=== PATIENT | male | born 1965 | race Hispanic/Latino ===

== ENCOUNTER 2018-08-30 18:56 | Emergency (ER) | payer OTHER, SELFPAY ==
[2018-08-30] MEDS ORDERED: NA CHLORIDE 0.9% 1,000 ML ONE (19:51)
[2018-08-30] MEDS ORDERED: ONDANSETRON 4 MG/2 ML VIAL ONE (19:51)
[2018-08-30] MEDS ORDERED: MORPHINE 4 MG/ML SYR ONE (19:51)
[2018-08-30 19:52] LABS: Absolute Lymphocytes (CBC) 0.9 K/uL (0.7-4.9); Absolute Monocytes 0.6 K/uL (0.1-1.3); Absolute Neutrophil 7.9 K/uL (1.8-8.0); Basophils % 0.4 % (0-1.3); Hematocrit 27.8 % (39.6-49.0); Lymphocytes % 9.3 % (15.3-44.8); MPV 6.5 fL (7.6-11.3); Monocytes % 5.8 % (3.3-12.3); RBC Red Blood Cell Count 3.84 M/uL (4.33-5.43)
[2018-08-30 20:31] LABS: ALT/SGPT 13 U/L (12-78); AST/SGOT 90 U/L (15-37); Albumin 2.4 g/dL (3.4-5.0); Alkaline Phosphatase 954 U/L (45-117); BUN Blood Urea Nitrogen 18 mg/dL (7-18); Bicarbonate 27 mmol/L (21-32); Bilirubin Direct 0.1 mg/dL (0-0.2); Bilirubin Total 0.3 mg/dL (0.2-1.0); Glucose Level 157 mg/dL (74-106); Lipase 105 U/L (73-393); Potassium 4.3 mmol/L (3.5-5.1); Protein, Total 6.6 g/dL (6.4-8.2); Sodium Level 137 mmol/L (136-145)
[2018-08-30 20:36] LABS: Anisocytosis SLIGHT; Blood Morphology Comment NOTED (NOT SEEN); Platelet Estimate ADEQ; Poikilocytosis SLIGHT; Polychromasia SLIGHT; Urine White Blood Cell Casts DIFF
[2018-08-30] MEDS ORDERED: KETOROLAC 30 MG/ML INJ ONE (21:46)
--- NOTE | 2018-08-30 22:09 | ER ---
Nurse's Notes [facility] Name: Anamaria Can Jr Age: 53 yrs Sex: Male : 1965 Arrival Date: 08/30/2018 Time: 18:59 Bed 4 Private MD: Berhane Hung R Diagnosis: Low back pain Presentation: 08/30 19:23 Presenting complaint: Patient states: he has had severe back pain for the last 2 to 3 bb months pt recently diagnosed with cancer had recent biopsy but no results yet. Transition of care: patient was not received from another setting of care. Onset of symptoms is unknown. Risk Assessment: Do you want to hurt yourself or someone else? Patient reports no desire to harm self or others. Initial Sepsis Screen: Does the patient meet any 2 criteria? No. Patient's initial sepsis screen is negative. Does the patient have a suspected source of infection? No. Patient's initial sepsis screen is negative. Care prior to arrival: None. 19:23 Method Of Arrival: Ambulatory bb 19:23 Acuity: TALA 3 bb Historical: - Allergies: 19:29 No Known Allergies; bb - Home Meds: 19:29 hydrocodone-acetaminophen 10-325 mg oral tab 1 tab [Active]; famotidine 20 mg Oral tab bb [Active]; methocarbamol 500 mg Oral tab [Active]; multivitamin oral oral [Active]; Zofran (as hydrochloride) 8 mg Oral tab [Active]; Miralax Oral [Active]; atorvastatin 40 mg oral tab [Active]; clopidogrel 75 mg oral tab 1 tab once daily [Active]; insulin [Active]; - PMHx: 19:29 CAD; Diabetes - IDDM; ascites; bowel obstruction; Hypertension; GERD; Hyperlipidemia; bb - PSHx: 19:29 CABG; Gastric Bypass; bb - Immunization history:: Adult Immunizations up to date, Flu vaccine is up to date. - Social history:: Smoking status: Patient/guardian denies using tobacco, Patient/guardian denies using alcohol, street drugs. - Ebola Screening: : No symptoms or risks identified at this time. Screenin:45 Abuse screen: Denies threats or abuse. Nutritional screening: No deficits noted. tl2 Tuberculosis screening: No symptoms or risk factors identified. Fall Risk None identified. Assessment: 19:45 General: Appears in no apparent distress. uncomfortable, Behavior is cooperative, tl2 appropriate for age, anxious. General: pt recently released from hospital after being diagnosed with stomach cancer. Pt reports chronic back pain. Pain: Complains of pain in back Pain currently is 8 out of 10 on a pain scale. Is chronic. Neuro: Level of Consciousness is awake, alert, obeys commands, Oriented to person, place, time, situation. Cardiovascular: Denies chest pain. Respiratory: Airway is patent Respiratory effort is even, unlabored, Respiratory pattern is regular, symmetrical. GI: No signs and/or symptoms were reported involving the gastrointestinal system. : No signs and/or symptoms were reported regarding the genitourinary system. Derm: Skin is pink, warm \T\ dry. 20:18 Reassessment: Patient appears in no apparent distress at this time. Patient and/or tl2 family updated on plan of care and expected duration. Pain level reassessed. Patient is alert, oriented x 3, equal unlabored respirations, skin warm/dry/pink. Patient states feeling better. 21:25 Reassessment: Patient appears in no apparent distress at this time. Patient and/or tl2 family updated on plan of care and expected duration. Pain level reassessed. Patient is alert, oriented x 3, equal unlabored respirations, skin warm/dry/pink. 21:59 Reassessment: Patient appears in no apparent distress at this time. Patient and/or tl2 family updated on plan of care and expected duration. Pain level reassessed. Patient is alert, oriented x 3, equal unlabored respirations, skin warm/dry/pink. pt states pain has improved but he still feels an aching in his back. 22:39 Reassessment: Patient appears in no apparent distress at this time. Patient and/or tl2 family updated on plan of care and expected duration. Pain level reassessed. Patient is alert, oriented x 3, equal unlabored respirations, skin warm/dry/pink. pt verbalized understanding of discharge instructions, need for follow up and prescription usage Patient denies pain at this time. Patient states feeling better. Vital Signs: 19:29 BP 145 / 93; Pulse 100; Resp 18 S; Temp 98.7(O); Pulse Ox 96% on R/A; Weight 68.04 kg bb (R); Height 5 ft. 7 in. (170.18 cm) (R); Pain 10/10; 20:18 BP 119 / 86; Pulse 87; Resp 18; Pulse Ox 94% on R/A; tl2 21:24 BP 133 / 86; Pulse 65; Resp 18; Pulse Ox 95% on R/A; tl2 21:59 BP 136 / 70; Pulse 65; Resp 18; Pulse Ox 95% on R/A; tl2 19:29 Body Mass Index 23.49 (68.04 kg, 170.18 cm) bb ED Course: 18:59 Patient arrived in ED. dl4 18:59 Berhane Hung MD is Private Physician. dl4 19:20 Ramirez Bess MD is Attending Physician. tw4 19:24 Julita Fields RN is Primary Nurse. tl2 19:24 Triage completed. bb 19:29 Arm band placed on Patient placed in an exam room, on a stretcher, on pulse oximetry. bb Family accompanied patient. 19:35 Inserted saline lock: 20 gauge in right antecubital area, using aseptic technique. tl2 Blood collected. 19:45 Patient has correct armband on for positive identification. Placed in gown. Bed in low tl2 position. Call light in reach. Side rails up X 1. Adult w/ patient. 22:07 Berhane Hung MD is Referral Physician. tw4 22:39 No provider procedures requiring assistance completed. IV discontinued, intact, tl2 bleeding controlled, No redness/swelling at site. Pressure dressing applied. Administered Medications: 19:44 Drug: morphine 4 mg Route: IVP; Site: right antecubital; tl2 20:30 Follow up: Response: No adverse reaction; Pain is decreased tl2 19:44 Drug: Zofran 4 mg Route: IVP; Site: right antecubital; tl2 20:30 Follow up: Response: No adverse reaction; Nausea is decreased tl2 19:44 Drug: NS 0.9% 1000 ml Route: IV; Rate: 1 bolus; Site: right antecubital; tl2 20:57 Follow up: IV Status: Completed infusion; IV Intake: 1000ml tl2 22:00 Drug: TORadol 30 mg Route: IVP; Site: right antecubital; tl2 22:42 Follow up: Response: No adverse reaction; Pain is decreased tl2 Intake: 20:57 IV: 1000ml; Total: 1000ml. tl2 Outcome: 22:07 Discharge ordered by . tw4 22:39 Discharged to home via wheelchair, with family. tl2 22:39 Condition: stable 22:39 Discharge instructions given to patient, family, Instructed on discharge instructions, follow up and referral plans. medication usage, Demonstrated understanding of instructions, follow-up care, medications, Prescriptions given X 2. 22:42 Patient left the ED. tl2 Signatures: Mehreen Jordan RN RN Julita He RN RN tl2 Ramirez Bess MD MD tw4 Marcelo Valderrama dl4
--- NOTE | 2018-08-30 22:09 | EDPHYS ---
Physician Documentation [facility] Name: Anamaria Can Jr Age: 53 yrs Sex: Male : 1965 Arrival Date: 08/30/2018 Time: 18:59 Bed 4 Private MD: Berhane Hung R ED Physician Ramirez Bess HPI: 08/30 22:08 This 53 yrs old Male presents to ER via Ambulatory with complaints of Back tw4 Pain. 22:08 The patient presents with pain that is chronic, with no known mechanism of injury. The tw4 symptoms are located in the low back. Onset: The symptoms/episode began/occurred 2 week(s) ago, and became worse 1 day(s) ago. The pain does not radiate. Associated signs and symptoms: The patient has no apparent associated signs or symptoms. The problem was sustained without known cause. Modifying factors: The patient symptoms are alleviated by remaining still, the patient symptoms are aggravated by movement. The patient has not experienced similar symptoms in the past. Historical: - Allergies: 19:29 No Known Allergies; bb - Home Meds: 19:29 hydrocodone-acetaminophen 10-325 mg oral tab 1 tab [Active]; famotidine 20 mg Oral tab bb [Active]; methocarbamol 500 mg Oral tab [Active]; multivitamin oral oral [Active]; Zofran (as hydrochloride) 8 mg Oral tab [Active]; Miralax Oral [Active]; atorvastatin 40 mg oral tab [Active]; clopidogrel 75 mg oral tab 1 tab once daily [Active]; insulin [Active]; - PMHx: 19:29 CAD; Diabetes - IDDM; ascites; bowel obstruction; Hypertension; GERD; Hyperlipidemia; bb - PSHx: 19:29 CABG; Gastric Bypass; bb - Immunization history:: Adult Immunizations up to date, Flu vaccine is up to date. - Social history:: Smoking status: Patient/guardian denies using tobacco, Patient/guardian denies using alcohol, street drugs. - Ebola Screening: : No symptoms or risks identified at this time. ROS: 22:08 Constitutional: Negative for fever, chills, and weight loss, Eyes: Negative for injury, tw4 pain, redness, and discharge, Cardiovascular: Negative for chest pain, palpitations, and edema, Respiratory: Negative for shortness of breath, cough, wheezing, and pleuritic chest pain, Abdomen/GI: Negative for abdominal pain, nausea, vomiting, diarrhea, and constipation, MS/Extremity: Negative for injury and deformity, Skin: Negative for injury, rash, and discoloration, Neuro: Negative for headache, weakness, numbness, tingling, and seizure. 22:08 Back: Positive for decreased range of motion, pain at rest, pain with movement, Negative for injury or acute deformity, radiated pain, acute changes. Exam: 22:08 Constitutional: This is a well developed, well nourished patient who is awake, alert, tw4 and in no acute distress. Head/Face: Normocephalic, atraumatic. Chest/axilla: Normal chest wall appearance and motion. Nontender with no deformity. No lesions are appreciated. Cardiovascular: Regular rate and rhythm with a normal S1 and S2. No gallops, murmurs, or rubs. Normal PMI, no JVD. No pulse deficits. Respiratory: Lungs have equal breath sounds bilaterally, clear to auscultation and percussion. No rales, rhonchi or wheezes noted. No increased work of breathing, no retractions or nasal flaring. Abdomen/GI: Soft, non-tender, with normal bowel sounds. No distension or tympany. No guarding or rebound. No evidence of tenderness throughout. Skin: Warm, dry with normal turgor. Normal color with no rashes, no lesions, and no evidence of cellulitis. MS/ Extremity: Pulses equal, no cyanosis. Neurovascular intact. Full, normal range of motion. Neuro: Awake and alert, GCS 15, oriented to person, place, time, and situation. Cranial nerves II-XII grossly intact. Motor strength 5/5 in all extremities. Sensory grossly intact. Cerebellar exam normal. Normal gait. Vital Signs: 19:29 BP 145 / 93; Pulse 100; Resp 18 S; Temp 98.7(O); Pulse Ox 96% on R/A; Weight 68.04 kg bb (R); Height 5 ft. 7 in. (170.18 cm) (R); Pain 10/10; 20:18 BP 119 / 86; Pulse 87; Resp 18; Pulse Ox 94% on R/A; tl2 21:24 BP 133 / 86; Pulse 65; Resp 18; Pulse Ox 95% on R/A; tl2 21:59 BP 136 / 70; Pulse 65; Resp 18; Pulse Ox 95% on R/A; tl2 19:29 Body Mass Index 23.49 (68.04 kg, 170.18 cm) bb MDM: 19:21 Patient medically screened. tw4 22:08 Differential diagnosis: Abdominal Aortic Aneurysm Basilar Pneumonia chronic back pain, tw4 Hydronephrosis Joint Injury Osteoporosis. Data reviewed: vital signs, nurses notes. Counseling: I had a detailed discussion with the patient and/or guardian regarding: the historical points, exam findings, and any diagnostic results supporting the discharge/admit diagnosis. Medication response: morphine relieved the patient's pain. Symptoms have resolved. Response to treatment: the patient's symptoms have resolved after treatment, and as a result, I will discharge patient. Special discussion: I discussed with the patient/guardian in detail that at this point there is no indication for admission to the hospital. It is understood, however, that if the symptoms persist or worsen the patient needs to return immediately for re-evaluation. 08/30 19:22 Order name: Urine Microscopic Only tw08/30 19:32 Order name: Basic Metabolic Panel; Complete Time: 20:55 08/30 20:55 Interpretation: Normal except: GLUC 157. tw4 08/30 19:32 Order name: CBC with Diff; Complete Time: 20:55 08/30 20:55 Interpretation: Normal except: RBC 3.84; HGB 9.0; HCT 27.8; MCV 72.5; MCH 23.5; RDW tw4 19.7; MPV 6.5; SAUL% 81.5; LYM% 9.3. 08/30 19:32 Order name: Creatinine for Radiology; Complete Time: 22:07 08/30 19:32 Order name: Hepatic Function; Complete Time: 20:56 tw08/30 20:56 Interpretation: Normal except: AST 90; ALK 954; ALB 2.4; GLOB 4.2; A/G 0.6. tw08/30 19:32 Order name: Lipase; Complete Time: 20:56 4 08/30 19:22 Order name: Urine Dipstick-Ancillary (obtain specimen); Complete Time: 22:00 tw08/30 20:02 Order name: CBC Smear Scan EDMS 08/30 20:38 Order name: Manual Differential; Complete Time: 20:56 EDMS 08/30 20:56 Interpretation: Normal except: BANDS [F] 4; LYM 14. tw4 08/30 22:11 Order name: Urine Dipstick--Ancillary (enter results) [facility] 08/30 19:32 Order name: IV Saline Lock; Complete Time: 19:43 tw4 08/30 19:32 Order name: Labs collected and sent; Complete Time: 19:43 tw4 Administered Medications: 19:44 Drug: morphine 4 mg Route: IVP; Site: right antecubital; tl2 20:30 Follow up: Response: No adverse reaction; Pain is decreased tl2 19:44 Drug: Zofran 4 mg Route: IVP; Site: right antecubital; tl2 20:30 Follow up: Response: No adverse reaction; Nausea is decreased tl2 19:44 Drug: NS 0.9% 1000 ml Route: IV; Rate: 1 bolus; Site: right antecubital; tl2 20:57 Follow up: IV Status: Completed infusion; IV Intake: 1000ml tl2 22:00 Drug: TORadol 30 mg Route: IVP; Site: right antecubital; tl2 22:42 Follow up: Response: No adverse reaction; Pain is decreased tl2 Disposition: 08/30/18 22:07 Discharged to Home. Impression: Low back pain. - Condition is Stable. - Discharge Instructions: Back Pain, Adult, Chronic Back Pain. - Prescriptions for Cyclobenzaprine 10 mg Oral Tablet - take 1 tablet by ORAL route every 8 hours As needed; 30 tablet. Tramadol 50 mg Oral Tablet - take 1 tablet by ORAL route every 8 hours as needed; 12 tablet. - Medication Reconciliation Form, Thank You Letter, Antibiotic Education, Prescription Opioid Use form. - Follow up: Berhaen Hugn MD; When: Upon discharge from the Emergency Department; Reason: If symptoms return, Recheck today's complaints, Continuance of care. Follow up: Private Physician; When: Upon discharge from the Emergency Department; Reason: If symptoms return, Recheck today's complaints, Continuance of care. - Problem is new. - Symptoms have improved. Signatures: Dispatcher [employer] [facility] Mehreen Jordan RN RN bb Julita Fields RN RN tl2 Ramirez Bess MD MD tw4 Corrections: (The following items were deleted from the chart) 22:42 22:07 08/30/2018 22:07 Discharged to Home. Impression: Low back pain. Condition is tl2 Stable. Forms are Medication Reconciliation Form, Thank You Letter, Antibiotic Education, Prescription Opioid Use. Follow up: Berhane Hung; When: Upon discharge from the Emergency Department; Reason: If symptoms return, Recheck today's complaints, Continuance of care. Follow up: Private Physician; When: Upon discharge from the Emergency Department; Reason: If symptoms return, Recheck today's complaints, Continuance of care. Problem is new. Symptoms have improved. tw4
[2018-08-30 22:16] LABS: Urine Blood NEGATIVE (NEG); Urine Glucose TRACE (NEG); Urine Protein NEGATIVE (NEG); Urine pH 5.5 (5.0-7.0)
[2018-08-30 22:25] LABS: Urine Bacteria NONE SEEN /HPF (NONE SEEN); Urine Culture Reflex Order NOT NEEDED; Urine RBC NONE SEEN /HPF (NONE SEEN)
== END 2018-08-30 22:42 | disposition home or self-care (01) ==
LOC: ER 18:56
DX: M54.5 Low back pain (principal); I10 Essential (primary) hypertension; E11.9 Type 2 diabetes mellitus without complications; E78.5 Hyperlipidemia, unspecified; Z79.4 Long term (current) use of insulin; Z95.1 Presence of aortocoronary bypass graft
CPT/HCPCS: 36415; 80048; 80076; 81003; 81015; 83690; 85025; 96361; 96374; 96375; 99284; J2405; J7030

== ENCOUNTER 2018-09-05 12:43 | Emergency (ER) | payer SELFPAY ==
[2018-09-05] MEDS ORDERED: FENTANYL CITR 100 MCG/2 ML ONE ×2 (13:43→14:34)
[2018-09-05 13:52] LABS: Absolute Lymphocytes (CBC) 0.6 K/uL (0.7-4.9); Absolute Monocytes 0.4 K/uL (0.1-1.3); Absolute Neutrophil 5.9 K/uL (1.8-8.0); Basophils % 0.5 % (0-1.3); Eosinophils % 4.1 % (0-4.4); Hematocrit 25.7 % (39.6-49.0); Lymphocytes % 8.3 % (15.3-44.8); RBC Red Blood Cell Count 3.59 M/uL (4.33-5.43)
[2018-09-05 14:26] LABS: Albumin 2.5 g/dL (3.4-5.0); Bilirubin Direct 0.2 mg/dL (0-0.2); Bilirubin Total 0.4 mg/dL (0.2-1.0); Potassium 3.9 mmol/L (3.5-5.1); Protein, Total 6.6 g/dL (6.4-8.2)
[2018-09-05 14:50] LABS: Anisocytosis 1+; Blood Morphology Comment NOTED (NOT SEEN); Platelet Estimate ADEQ; Platelets, Giant NOTED
--- NOTE | 2018-09-05 14:51 | RAD REPORT ---
EXAM DESCRIPTION: CT - Chest Abdomen Pelvis W Cont - 09/05/2018 1:58 pm CLINICAL HISTORY: Chest and abdominal pain status post fall COMPARISON: None TECHNIQUE: Computed axial tomography of the chest, abdomen and pelvis was obtained. 100 cc Isovue-30 0 was administered intravenously. Oral contrast was not requested. This limits evaluation of bowel. All CT scans are performed using dose optimization technique as appropriate and may include automated exposure control or mA/KV adjustment according to patient size. FINDINGS: A pleural effusion is not present. A pulmonary contusion is not seen. A 4 millimeter nodule is present within right anterior lung base. A few areas of subsegmental axis are present within the lung bases bilaterally. A mediastinal hematoma is not present. The liver, spleen, pancreas, adrenals kidneys and bladder do not demonstrate a traumatic injury. Moderate amount ascites present within abdomen and pelvis. The bones have a mottled appearance. Mild compression fractures involve the L3 and L4 vertebral keerthi s. Postsurgical changes involve the stomach. The wall of the distal stomach appears thickened IMPRESSION: No traumatic injury involving the chest Mild compression fractures involving the L3 and L4 vertebral bodies probably are pathologic. The bones have a mottled appearance likely indicating metastatic disease Moderate ascites The wall of the distal stomach appears thickened perhaps secondary to inflammation or mass
[2018-09-05 14:52] LABS: Hypochromasia 1+; Polychromasia 1+
--- NOTE | 2018-09-05 17:14 | EDPHYS ---
Physician Documentation [facility] Name: Anamaria Can Jr Age: 53 yrs Sex: Male : 1965 Arrival Date: 09/05/2018 Time: 12:44 Bed 24 Private MD: Berhane Hung R ED Physician Jeffy Walker HPI: 09/05 19:36 This 53 yrs old Male presents to ER via Wheelchair with complaints of Back gs Pain. 19:36 The patient presents with pain that is acute. The symptoms are located in the L1 and gs L2. Onset: The symptoms/episode began/occurred 3 day(s) ago. Associated signs and symptoms: Pertinent negatives: incontinence, numbness, tingling, urinary retention. Modifying factors: the patient symptoms are aggravated by any movement. Severity of symptoms: At their worst the symptoms were severe, in the emergency department the symptoms are unchanged. The patient has not experienced similar symptoms in the past. recent cancer diagnosis. Historical: - Allergies: 13:04 No Known Allergies; ss - PMHx: 13:04 bowel obstruction; CAD; Diabetes - IDDM; GERD; Hyperlipidemia; Hypertension; ascites; ss - PSHx: 13:04 CABG; Gastric Bypass; ss - Immunization history:: Adult Immunizations up to date. - Social history:: Smoking status: unknown. - Ebola Screening: : Patient negative for fever greater than or equal to 101.5 degrees Fahrenheit, and additional compatible Ebola Virus Disease symptoms Patient denies exposure to infectious person Patient denies travel to an Ebola-affected area in the 21 days before illness onset. ROS: 19:36 All other systems are negative. gs Exam: 19:36 Head/Face: Normocephalic, atraumatic. Eyes: Pupils equal round and reactive to light, gs extra-ocular motions intact. Lids and lashes normal. Conjunctiva and sclera are non-icteric and not injected. Cornea within normal limits. Periorbital areas with no swelling, redness, or edema. ENT: Nares patent. No nasal discharge, no septal abnormalities noted. Tympanic membranes are normal and external auditory canals are clear. Oropharynx with no redness, swelling, or masses, exudates, or evidence of obstruction, uvula midline. Mucous membranes moist. Neck: Trachea midline, no thyromegaly or masses palpated, and no cervical lymphadenopathy. Supple, full range of motion without nuchal rigidity, or vertebral point tenderness. No Meningismus. Chest/axilla: Normal chest wall appearance and motion. Nontender with no deformity. No lesions are appreciated. Cardiovascular: Regular rate and rhythm with a normal S1 and S2. No gallops, murmurs, or rubs. Normal PMI, no JVD. No pulse deficits. Respiratory: Lungs have equal breath sounds bilaterally, clear to auscultation and percussion. No rales, rhonchi or wheezes noted. No increased work of breathing, no retractions or nasal flaring. Abdomen/GI: Soft, non-tender, with normal bowel sounds. No distension or tympany. No guarding or rebound. No evidence of tenderness throughout. Skin: Warm, dry with normal turgor. Normal color with no rashes, no lesions, and no evidence of cellulitis. MS/ Extremity: Pulses equal, no cyanosis. Neurovascular intact. Full, normal range of motion. 19:36 Constitutional: The patient appears alert, awake, in obvious distress, severely distressed. 19:36 Back: vertebral tenderness, is appreciated at L1 and L2. 19:36 Neuro: Orientation: is normal, Motor: is normal, Sensation: no obvious gross deficits. Vital Signs: 12:58 BP 110 / 64; Pulse 99; Resp 22; Temp 96.8(O); Pulse Ox 100% on R/A; Weight 68.04 kg; ss Height 5 ft. 7 in. (170.18 cm); Pain 10/10; 14:33 BP 132 / 86; Pulse 88; Resp 18; Pulse Ox 96% on R/A; aj1 15:00 BP 109 / 86; Pulse 88; Resp 17 S; Pulse Ox 99% on R/A; rv 15:30 BP 133 / 84; Pulse 92; Resp 19 S; Pulse Ox 99% on R/A; rv 16:30 BP 135 / 90; Pulse 91; Resp 22 S; Pulse Ox 100% on R/A; rv 17:00 BP 127 / 84; Pulse 90; Resp 18; Pulse Ox 100% on R/A; rv 17:30 BP 133 / 94; Pulse 84; Resp 18; Pulse Ox 99% on R/A; rv 18:00 BP 126 / 78; Pulse 96; Resp 21; Pulse Ox 100% on R/A; rv 12:58 Body Mass Index 23.49 (68.04 kg, 170.18 cm) MDM: 13:19 Patient medically screened. 19:36 Differential diagnosis: chronic back pain, Fracture Neoplasm. Data reviewed: vital gs signs, nurses notes. Response to treatment: the patient's symptoms have markedly improved after treatment, and as a result, I will discharge patient. Physician consultation: Berhane Hung MD and will see patient in office, tomorrow. 19:39 ED course: other dx- vertebral compression fractures. 09/05 13:20 Order name: Basic Metabolic Panel 09/05 13:20 Order name: CBC with Diff; Complete Time: 15:27 09/05 13:20 Order name: Hepatic Function 09/05 13:20 Order name: Lipase; Complete Time: 15:27 09/05 13:21 Order name: Basic Metabolic Panel; Complete Time: 15:27 EDMS 09/05 13:21 Order name: Liver (Hepatic) Function; Complete Time: 15:27 EDMS 09/05 13:20 Order name: IV Saline Lock; Complete Time: 13:49 09/05 13:20 Order name: Labs collected and sent; Complete Time: 13:49 09/05 13:20 Order name: CT Chest, Abdomen, Pelvis - W/Contrast; Complete Time: 15:27 09/05 14:42 Order name: Manual Differential; Complete Time: 15:27 EDMS Administered Medications: 13:37 Drug: fentaNYL (PF) 50 mcg Route: IVP; Site: right antecubital; aj1 14:26 Follow up: Response: No adverse reaction aj1 14:26 Drug: fentaNYL (PF) 50 mcg {Note: given by Shelley MIR.} Route: IVP; Site: right rv antecubital; 18:10 Follow up: Response: Pain is decreased rv 18:08 Drug: Orchard 10 mg-325 mg 1 tabs Route: PO; rv 18:10 Follow up: Response: Medication administered at discharge. rv Disposition: 09/05/18 17:45 Discharged to Home. Impression: Malignant neoplasm of vertebral column. - Condition is Stable. - Discharge Instructions: Bone Metastasis. - Medication Reconciliation Form, Thank You Letter, Antibiotic Education, Prescription Opioid Use form. - Follow up: Berhane Hung MD; When: Tomorrow. Signatures: Dispatcher [employer] EDMS Ana Nicole RN RN aj1 Cristal Cohn RN RN ss Jeffy Walker MD MD Jesus Franco RN RN rv Corrections: (The following items were deleted from the chart) 14:42 13:57 CBC Smear Scan ordered. EDMS EDMS 17:45 17:13 Hospitalization Ordered by Rea Rahman MD for Observation. Preliminary gs diagnosis is Malignant neoplasm of vertebral column. Bed requested for Telemetry/MedSurg (observation). Status is Observation. Condition is Stable. Problem is new. Symptoms are unchanged. UTI on Admission? No. gs 18:15 17:45 09/05/2018 17:45 Discharged to Home. Impression: Malignant neoplasm of vertebral rv column. Condition is Stable. Forms are Medication Reconciliation Form, Thank You Letter, Antibiotic Education, Prescription Opioid Use. Follow up: Berhane Hung; When: Tomorrow. gs
--- NOTE | 2018-09-05 17:14 | ER ---
Nurse's Notes [facility] Name: Anamaria Can Jr Age: 53 yrs Sex: Male : 1965 Arrival Date: 09/05/2018 Time: 12:44 Bed 24 Private MD: Berhane Hung R Diagnosis: Malignant neoplasm of vertebral column Presentation: 09/05 12:59 Presenting complaint: Patient states: severe back pain x 1 month. Pt reports a fall a ss month ago, but the pain has gotten increasingly worse. Transition of care: patient was not received from another setting of care. Onset of symptoms was August 2017. Risk Assessment: Do you want to hurt yourself or someone else? Patient reports no desire to harm self or others. Initial Sepsis Screen: Does the patient meet any 2 criteria? No. Patient's initial sepsis screen is negative. Does the patient have a suspected source of infection? No. Patient's initial sepsis screen is negative. Note Pt has been seen by by PCP and ER, but reports he has not had any imaging obtained. Pt was told he has an unknown cancer after having abdominal fluid tested. Care prior to arrival: None. 12:59 Method Of Arrival: Wheelchair ss 12:59 Acuity: TALA 2 ss Historical: - Allergies: 13:04 No Known Allergies; ss - PMHx: 13:04 bowel obstruction; CAD; Diabetes - IDDM; GERD; Hyperlipidemia; Hypertension; ascites; ss - PSHx: 13:04 CABG; Gastric Bypass; ss - Immunization history:: Adult Immunizations up to date. - Social history:: Smoking status: unknown. - Ebola Screening: : Patient negative for fever greater than or equal to 101.5 degrees Fahrenheit, and additional compatible Ebola Virus Disease symptoms Patient denies exposure to infectious person Patient denies travel to an Ebola-affected area in the 21 days before illness onset. Screenin:15 Abuse screen: Denies threats or abuse. Denies injuries from another. Nutritional aj1 screening: No deficits noted. Tuberculosis screening: No symptoms or risk factors identified. 18:13 Fall Risk None identified. rv Assessment: 13:15 General: Appears uncomfortable, Behavior is calm, cooperative. Pain: Complains of pain aj1 in back Pain does not radiate. Pain currently is 10 out of 10 on a pain scale. Noted to be grimacing, guarding, moaning, resistant to movement, withdrawn. Neuro: Level of Consciousness is awake, alert, obeys commands, Oriented to person, place, time, situation. Cardiovascular: Patient's skin is warm and dry. Respiratory: Airway is patent Respiratory effort is even, unlabored, Respiratory pattern is regular, symmetrical. GI: No signs and/or symptoms were reported involving the gastrointestinal system. : No signs and/or symptoms were reported regarding the genitourinary system. EENT: No signs and/or symptoms were reported regarding the EENT system. Derm: Skin is pale. Musculoskeletal: No signs and/or symptoms reported regarding the musculoskeletal system. Circulation, motion, and sensation intact. 13:53 Reassessment:. aj1 13:53 Reassessment: Patient transported to CT via stretcher. aj1 14:25 Reassessment: Patient states that he is still hurting, notified Dr. Walker. Order aj1 received. Vital Signs: 12:58 BP 110 / 64; Pulse 99; Resp 22; Temp 96.8(O); Pulse Ox 100% on R/A; Weight 68.04 kg; ss Height 5 ft. 7 in. (170.18 cm); Pain 10/10; 14:33 BP 132 / 86; Pulse 88; Resp 18; Pulse Ox 96% on R/A; aj1 15:00 BP 109 / 86; Pulse 88; Resp 17 S; Pulse Ox 99% on R/A; rv 15:30 BP 133 / 84; Pulse 92; Resp 19 S; Pulse Ox 99% on R/A; rv 16:30 BP 135 / 90; Pulse 91; Resp 22 S; Pulse Ox 100% on R/A; rv 17:00 BP 127 / 84; Pulse 90; Resp 18; Pulse Ox 100% on R/A; rv 17:30 BP 133 / 94; Pulse 84; Resp 18; Pulse Ox 99% on R/A; rv 18:00 BP 126 / 78; Pulse 96; Resp 21; Pulse Ox 100% on R/A; rv 12:58 Body Mass Index 23.49 (68.04 kg, 170.18 cm) ED Course: 12:44 Patient arrived in ED. ag5 12:45 Berhane Hung MD is Private Physician. ag5 12:57 Jeffy Walker MD is Attending Physician. gs 12:58 Arm band placed on right wrist. ss 13:03 Triage completed. ss 13:15 Patient has correct armband on for positive identification. Bed in low position. Call aj1 light in reach. Side rails up X 1. 13:15 No provider procedures requiring assistance completed. aj1 13:27 Ana Nicole, RN is Primary Nurse. aj1 13:37 Initial lab(s) drawn, by me, sent to lab. Inserted saline lock: 18 gauge in right aj1 antecubital area, using aseptic technique. Blood collected. 13:58 CT Chest, Abdomen, Pelvis - W/Contrast In Process Unspecified. EDMS 14:53 Report given to CLARKE Lee. aj1 17:12 Rea Rahman MD is Hospitalizing Provider. gs 17:45 Berhane Hung MD is Referral Physician. gs 18:14 IV discontinued, bleeding controlled, No redness/swelling at site. Pressure dressing rv applied. Administered Medications: 13:37 Drug: fentaNYL (PF) 50 mcg Route: IVP; Site: right antecubital; aj1 14:26 Follow up: Response: No adverse reaction aj1 14:26 Drug: fentaNYL (PF) 50 mcg {Note: given by Shelley MIR.} Route: IVP; Site: right rv antecubital; 18:10 Follow up: Response: Pain is decreased rv 18:08 Drug: [place] 10 mg-325 mg 1 tabs Route: PO; rv 18:10 Follow up: Response: Medication administered at discharge. rv Outcome: 17:13 Decision to Hospitalize by Provider. gs 17:45 Discharge ordered by MD. gs 18:13 Discharged to home via wheelchair. rv 18:13 Condition: good 18:13 Discharge instructions given to patient, Instructed on discharge instructions, follow up and referral plans. Demonstrated understanding of instructions, follow-up care. 18:15 Patient left the ED. rv Signatures: Dispatcher [employer] EDIN Ana Nicole, CLARKE RN ajCristal Alex RN RN ss Starr, Gregory, MD MD Jesus Franco RN RN rv Gaskin, Ajare ag5 Corrections: (The following items were deleted from the chart) 18:09 14:26 fentaNYL (PF) 50 mcg IVP in right antecubital aj1 rv 18:09 18:09 Response: Medication administered at discharge. rv rv
[2018-09-05] MEDS ORDERED: HYDROCODONE/APAP 10/325 TAB ONE (18:07)
== END 2018-09-05 18:15 | disposition home or self-care (01) ==
LOC: ER 12:43
DX: C41.2 Malignant neoplasm of vertebral column (principal); I25.10 Atherosclerotic heart disease of native coronary artery without angina pectoris; I10 Essential (primary) hypertension; E11.9 Type 2 diabetes mellitus without complications; K21.9 Gastro-esophageal reflux disease without esophagitis; E78.5 Hyperlipidemia, unspecified; Z79.4 Long term (current) use of insulin
CPT/HCPCS: 36415; 71260; 74177; 80048; 80076; 83690; 85025; 96374; 99284; J3010; Q9967

== ENCOUNTER 2018-09-27 07:30 | Emergency (ER) | payer SELFPAY ==
--- OUTSIDE RECORDS SUMMARY | 2018-09-27 07:32 | XMS REPORT ---
:1965 [facility] Address [address] [place] [address] Care Team Providers Name Role Phone Unavailable Unavailable Unavailable Problems This patient has no known problems. Allergies, Adverse Reactions, Alerts This patient has no known allergies or adverse reactions. Medications This patient has no known medications.
[2018-09-27] MEDS ORDERED: ONDANSETRON 4 MG/2 ML VIAL ONE (08:03)
[2018-09-27] MEDS ORDERED: FENTANYL CITR 100 MCG/2 ML ONE (08:03)
[2018-09-27] MEDS ORDERED: NA CHLORIDE 0.9% 500 ML ONE (08:03)
[2018-09-27 08:24] LABS: Absolute Lymphocytes (CBC) 0.6 K/uL (0.7-4.9); Absolute Monocytes 0.3 K/uL (0.1-1.3); Absolute Neutrophil 2.9 K/uL (1.8-8.0); Basophils % 0.8 % (0-1.3); Eosinophils % 1.5 % (0-4.4); Hematocrit 28.1 % (39.6-49.0); Lymphocytes % 15.7 % (15.3-44.8); MPV 6.9 fL (7.6-11.3); Monocytes % 6.9 % (3.3-12.3); Protime INR 1.35; RBC Red Blood Cell Count 3.69 M/uL (4.33-5.43)
--- NOTE | 2018-09-27 08:38 | RAD REPORT ---
EXAM DESCRIPTION: RAD - Chest Single View - 09/27/2018 8:31 am CLINICAL HISTORY: SOB Chest pain. COMPARISON: Abdomen 1 View (KUB) dated 09/27/2018; CHEST SINGLE VIEW dated 01/01/2011 FINDINGS: Portable technique limits examination quality. Subtle areas of linear atelectasis are seen in both lung bases. The lungs mildly underinflated. The h eart is normal in size. Sternotomy wires present.
--- NOTE | 2018-09-27 08:39 | RAD REPORT ---
EXAM DESCRIPTION: RAD - Abdomen 1 View (KUB) - 09/27/2018 8:31 am CLINICAL HISTORY: CONSTIPATION Pain COMPARISON: No comparisons FINDINGS: The bowel gas pattern is non-obstructive. No evidence of free air or pneumatosis. No suspi cious calcifications. Vertebroplasty cement noted in the thoracic and lumbar spine. Postsurgical clips seen left upper quadrant. IMPRESSION: No bowel obstruction other acute process seen.
[2018-09-27 08:50] LABS: Anisocytosis 1+; Blood Morphology Comment NOTED (NOT SEEN); Platelet Estimate ADEQ; Urine White Blood Cell Casts OK
[2018-09-27 09:02] LABS: ALT/SGPT 12 U/L (12-78); AST/SGOT 33 U/L (15-37); Albumin 2.2 g/dL (3.4-5.0); Alkaline Phosphatase 1106 U/L (45-117); BUN Blood Urea Nitrogen 7 mg/dL (7-18); Bicarbonate 24 mmol/L (21-32); Bilirubin Direct 0.2 mg/dL (0-0.2); Bilirubin Total 0.4 mg/dL (0.2-1.0); Glucose Level 115 mg/dL (74-106); Lipase 149 U/L (73-393); Potassium 4.1 mmol/L (3.5-5.1); Protein, Total 5.9 g/dL (6.4-8.2); Sodium Level 137 mmol/L (136-145); Troponin (Emerg Dept Use Only) < 0.02 ng/mL (0.0-0.045)
--- NOTE | 2018-09-27 09:49 | ER ---
Nurse's Notes [facility] Name: Donell Can Jr Age: 53 yrs Sex: Male : 1965 Arrival Date: 09/27/2018 Time: 07:32 Bed 14 Private MD: Diagnosis: Acute on Chronic Back Pain;Metastatic Spine Disease Presentation: 09/27 07:33 Presenting complaint: EMS states: from home, with hx of colon cancer with mets to the the spine area, per family causes small fractures to the spine area; been taking Dilaudid for pain, was given this AM but pain level is 8/10; pt has an appointment with MD at [facility] this 3 pm; BP- 105/68; HR- 84; O2 sat- 100%;. Transition of care: patient was not received from another setting of care. Onset of symptoms was September 27, 2018. Risk Assessment: Do you want to hurt yourself or someone else? Patient reports no desire to harm self or others. Initial Sepsis Screen: Does the patient meet any 2 criteria? No. Patient's initial sepsis screen is negative. Does the patient have a suspected source of infection? No. Patient's initial sepsis screen is negative. Care prior to arrival: None. 07:33 Method Of Arrival: EMS: [facility] 07:44 Acuity: TALA 3 tw2 Historical: - Allergies: 07:38 No Known Allergies; hj 07:44 No Known Allergies; tw2 - Home Meds: 07:38 Tramadol Oral [Active]; Cyclobenzaprine Oral [Active]; dilaudid [Active]; 07:44 dilaudid 8mg PO Every 4 hours [Active]; Plavix 75 mg Oral tab 1 tab once daily tw2 [Active]; Miralax 17 gram/dose Oral powd once daily [Active]; - PMHx: 07:38 ascites; bowel obstruction; CAD; Diabetes - IDDM; GERD; Hyperlipidemia; Hypertension; hj colon cancer; - PSHx: 07:38 CABG; Gastric Bypass; hj 07:44 CABG; Gastric Bypass; tw2 - Immunization history:: Adult Immunizations unknown, Adult Immunizations. - Social history:: Smoking status: Patient/guardian denies using tobacco, Patient/guardian denies using alcohol, Smoking status: . - Ebola Screening: : Patient negative for fever greater than or equal to 101.5 degrees Fahrenheit, and additional compatible Ebola Virus Disease symptoms Patient denies exposure to infectious person Patient denies travel to an Ebola-affected area in the 21 days before illness onset Patient denies travel to an Ebola-affected area in the 21 days before illness onset. - Family history:: not pertinent. - Hospitalizations: : No recent hospitalization is reported. Screenin:38 Abuse screen: Denies threats or abuse. Nutritional screening: No deficits noted. tw2 Tuberculosis screening: No symptoms or risk factors identified. Fall Risk Secondary diagnosis (15 points) impaired mobility. Assessment: 07:46 General: Appears ill, slender, Behavior is calm, cooperative, appropriate for age. tw2 Pain: Complains of pain in back. Neuro: Level of Consciousness is awake, alert, obeys commands, Oriented to person, place, time, situation. Cardiovascular: Heart tones S1 S2 Patient's skin is warm and dry. Respiratory: Airway is patent Respiratory effort is even, unlabored, Respiratory pattern is regular, symmetrical, Breath sounds are clear bilaterally. GI: Bowel sounds present X 4 quads. Reports constipation, nausea, Patient currently denies vomiting. : No signs and/or symptoms were reported regarding the genitourinary system. EENT: No signs and/or symptoms were reported regarding the EENT system. Derm: Skin is pale. Musculoskeletal: Circulation, motion, and sensation intact. 08:32 Reassessment: Patient appears in no apparent distress at this time. Patient and/or tw2 family updated on plan of care and expected duration. Pain level reassessed. 09:26 Reassessment: Patient appears in no apparent distress at this time. Patient and/or tw2 family updated on plan of care and expected duration. Pain level reassessed. 09:37 Reassessment: Dr. Min at bedside at this time. tw2 10:08 Reassessment: pt states "i dont have to urinate right now", provider notified. tw2 10:23 Reassessment: Patient appears in no apparent distress at this time. Patient and/or tw2 family updated on plan of care and expected duration. Pain level reassessed. Patient states feeling better. Vital Signs: 07:37 BP 96 / 66; Pulse 85; Resp 17; Temp 97.7(O); Pulse Ox 100% on R/A; Weight 58.97 kg (R); tw2 Height 5 ft. 5 in. (165.10 cm); Pain 10/10; 08:32 BP 97 / 74; Pulse 85; Resp 19; Pulse Ox 100% on 2 lpm NC; tw2 09:26 BP 105 / 77; Pulse 87; Resp 19; Pulse Ox 100% on 2 lpm NC; tw2 10:23 BP 95 / 69; Pulse 84; Resp 17; Pulse Ox 97% on R/A; tw2 07:37 Body Mass Index 21.63 (58.97 kg, 165.10 cm) tw2 ED Course: 07:32 Patient arrived in ED. tw2 07:32 Bed in low position. Call light in reach. Side rails up X2. Adult w/ patient. Cardiac tw2 monitor on. Pulse ox on. NIBP on. Warm blanket given. 07:36 Triage completed. hj 07:37 Bernie Pagan RN is Primary Nurse. tw2 07:37 Manuel Min MD is Attending Physician. wa 07:37 Arm band placed on. tw2 08:09 Initial lab(s) drawn, by or, sent to lab. Inserted saline lock: 22 gauge in right jb1 antecubital area, using aseptic technique. Blood collected. 08:15 EKG done, by machine operator slitter technician. reviewed by Manuel Min MD. at1 08:31 Chest Single View XRAY In Process Unspecified. EDMS 08:31 Abdomen 1 View (KUB) XRAY In Process Unspecified. EDMS 10:08 No provider procedures requiring assistance completed. tw2 10:22 IV discontinued, intact, bleeding controlled, No redness/swelling at site. Pressure tw2 dressing applied. Administered Medications: 08:09 Drug: Zofran 4 mg Route: IVP; Site: right antecubital; tw2 08:36 Follow up: Response: No adverse reaction; Nausea is decreased tw2 08:11 Drug: fentaNYL (PF) 100 mcg Route: IVP; Site: right antecubital; tw2 08:35 Follow up: Response: No adverse reaction; Pain is decreased tw2 08:14 Drug: NS 0.9% 500 ml Route: IV; Rate: bolus; Site: right antecubital; tw2 09:15 Follow up: Response: No adverse reaction; IV Status: Completed infusion; IV Intake: tw2 500ml Intake: 09:15 IV: 500ml; Total: 500ml. tw2 Outcome: 09:48 Discharge ordered by . milli 10:21 Discharged to home via wheelchair, with family. tw2 10:21 Condition: stable 10:21 Discharge instructions given to patient, family, Instructed on discharge instructions, follow up and referral plans. medication usage, Demonstrated understanding of instructions, follow-up care, medications, Prescriptions given X 2. 10:26 Patient left the ED. tw2 Signatures: Dispatcher [employer] EDCastro Mohamud jb1 Karla Huang, shipping and receiving associate EKG Tat1 Pedrito Alberts RN RN hj Bernie Pagan RN RN tw2 Manuel Min MD MD wa Corrections: (The following items were deleted from the chart) 07:44 07:33 Acuity: TALA 4 hj tw2
--- NOTE | 2018-09-27 09:49 | EDPHYS ---
Physician Documentation [facility] Name: Donell Can Jr Age: 53 yrs Sex: Male : 1965 Arrival Date: 09/27/2018 Time: 07:32 Bed 14 Private MD: ED Physician Manuel Min HPI: 09/27 07:50 This 53 yrs old Male presents to ER via EMS with complaints of back pain. wa 07:50 The patient presents with pain that is chronic, h/o colon CA with mets in bone. also wa states constipated. pt on chemo at [facility]. admits to poor appetite and generalized weakness. The symptoms are located in the thoracic area, lumbar area and sacrum. Onset: The symptoms/episode began/occurred 3 month(s) ago. The pain does not radiate. Associated signs and symptoms: Pertinent positives: constipation, weakness, generalized, Pertinent negatives: abdominal pain, chest pain, dysuria, fever, headache, hematuria, tingling, vomiting. The problem was sustained from a chronic condition, known CA with mets to bone. Modifying factors: The patient symptoms are alleviated by nothing, the patient symptoms are aggravated by movement. Severity of symptoms: At their worst the symptoms were severe, in the emergency department the symptoms are actually worse. The patient has experienced similar episodes in the past, multiple times. The patient has not recently seen a physician. family states loss of appetite. nausea. denies vomiting. c/o constipation. denies abd pain. Historical: - Allergies: 07:38 No Known Allergies; 07:44 No Known Allergies; tw2 - Home Meds: 07:38 Tramadol Oral [Active]; Cyclobenzaprine Oral [Active]; dilaudid [Active]; 07:44 dilaudid 8mg PO Every 4 hours [Active]; Plavix 75 mg Oral tab 1 tab once daily tw2 [Active]; Miralax 17 gram/dose Oral powd once daily [Active]; - PMHx: 07:38 ascites; bowel obstruction; CAD; Diabetes - IDDM; GERD; Hyperlipidemia; Hypertension; hj colon cancer; - PSHx: 07:38 CABG; Gastric Bypass; hj 07:44 CABG; Gastric Bypass; tw2 - Immunization history:: Adult Immunizations unknown, Adult Immunizations. - Social history:: Smoking status: Patient/guardian denies using tobacco, Patient/guardian denies using alcohol, Smoking status: . - Ebola Screening: : Patient negative for fever greater than or equal to 101.5 degrees Fahrenheit, and additional compatible Ebola Virus Disease symptoms Patient denies exposure to infectious person Patient denies travel to an Ebola-affected area in the 21 days before illness onset Patient denies travel to an Ebola-affected area in the 21 days before illness onset. - Family history:: not pertinent. - Hospitalizations: : No recent hospitalization is reported. ROS: 07:57 Eyes: Negative for injury, pain, redness, and discharge, ENT: Negative for injury, wa pain, and discharge, Neck: Negative for injury, pain, and swelling, Cardiovascular: Negative for chest pain, palpitations, and edema, Respiratory: Negative for shortness of breath, cough, wheezing, and pleuritic chest pain, : Negative for injury, bleeding, discharge, and swelling, MS/Extremity: Negative for injury and deformity, Skin: Negative for injury, rash, and discoloration, Neuro: Negative for headache, weakness, numbness, tingling, and seizure, Psych: Negative for depression, anxiety, suicide ideation, homicidal ideation, and hallucinations. 07:57 Abdomen/GI: Positive for nausea, constipation, Negative for abdominal pain, vomiting. 07:57 Back: Positive for pain at rest, pain with movement, of the thoracic area, lumbar area and sacrum. 07:57 All other systems are negative. Exam: 07:59 Head/Face: Normocephalic, atraumatic. Eyes: Pupils equal round and reactive to light, wa extra-ocular motions intact. Lids and lashes normal. Conjunctiva and sclera are non-icteric and not injected. Cornea within normal limits. Periorbital areas with no swelling, redness, or edema. ENT: Nares patent. No nasal discharge, no septal abnormalities noted. Tympanic membranes are normal and external auditory canals are clear. Oropharynx with no redness, swelling, or masses, exudates, or evidence of obstruction, uvula midline. Mucous membranes moist. Neck: Trachea midline, no thyromegaly or masses palpated, and no cervical lymphadenopathy. Supple, full range of motion without nuchal rigidity, or vertebral point tenderness. No Meningismus. Chest/axilla: Normal chest wall appearance and motion. Nontender with no deformity. No lesions are appreciated. Cardiovascular: Regular rate and rhythm with a normal S1 and S2. No gallops, murmurs, or rubs. Normal PMI, no JVD. No pulse deficits. Respiratory: Lungs have equal breath sounds bilaterally, clear to auscultation and percussion. No rales, rhonchi or wheezes noted. No increased work of breathing, no retractions or nasal flaring. Abdomen/GI: Soft, non-tender, with normal bowel sounds. No distension or tympany. No guarding or rebound. No evidence of tenderness throughout. MS/ Extremity: Pulses equal, no cyanosis. Neurovascular intact. Full, normal range of motion. Neuro: Awake and alert, GCS 15, oriented to person, place, time, and situation. Cranial nerves II-XII grossly intact. Motor strength 5/5 in all extremities. Sensory grossly intact. Cerebellar exam normal. Normal gait. Psych: Awake, alert, with orientation to person, place and time. Behavior, mood, and affect are within normal limits. 07:59 Constitutional: The patient appears alert, appears weak. generalized pallor noted 07:59 Abdomen/GI: Inspection: abdomen appears normal, Bowel sounds: normal, Palpation: abdomen is soft and non-tender, in all quadrants. 07:59 Back: pain, that is moderate, of the thoracic area, lumbar area and sacrum. Vital Signs: 07:37 BP 96 / 66; Pulse 85; Resp 17; Temp 97.7(O); Pulse Ox 100% on R/A; Weight 58.97 kg (R); tw2 Height 5 ft. 5 in. (165.10 cm); Pain 10/10; 08:32 BP 97 / 74; Pulse 85; Resp 19; Pulse Ox 100% on 2 lpm NC; tw2 09:26 BP 105 / 77; Pulse 87; Resp 19; Pulse Ox 100% on 2 lpm NC; tw2 10:23 BP 95 / 69; Pulse 84; Resp 17; Pulse Ox 97% on R/A; tw2 07:37 Body Mass Index 21.63 (58.97 kg, 165.10 cm) tw2 MDM: 07:37 Patient medically screened. wa 08:01 Differential diagnosis: pain in spine secondary to mets from CA. no acute neuro wa findings. will treat pain. pt on chemo. pale. will check electrolytes and cbc. will r/o acute infection as well. 09:43 Data reviewed: vital signs, nurses notes, lab test result(s), EKG, radiologic studies. pa Test interpretation: by ED physician or midlevel provider: EKG: HR 86. low voltage. non-specific ST-T change. Labs noted for anemia at 9.5/28.1, plt of 143. now wbc at 3.9. elevated alk phos 1106. CXR: noted for mild linear atelectasis. KUB within normal limits. 09:46 Response to treatment: the patient's symptoms have markedly improved after treatment, wa states pain significantly improved. discussed pain control at home. will script for zofran and senna. pt has enough pain meds at home. advised to return for further pain management if pain is not manageable at home. 10:15 Special discussion: was unable to give a UA sample during visit. otherwise no urinary wa complaints. as such d/c'd order to allow pt to be d/c'd. 09/27 07:47 Order name: Basic Metabolic Panel; Complete Time: 09:07 pa 09/27 07:47 Order name: CBC with Diff; Complete Time: 09:07 pa 09/27 07:47 Order name: Lactate; Complete Time: 09:42 pa 09/27 07:47 Order name: LFT's; Complete Time: 09:07 pa 09/27 07:47 Order name: Lipase; Complete Time: 09:07 09/27 07:47 Order name: Procalcitonin; Complete Time: 09:42 09/27 07:47 Order name: Protime (+inr); Complete Time: 09:07 pa 09/27 07:47 Order name: Troponin (emerg Dept Use Only); Complete Time: 09:07 pa 09/27 07:47 Order name: Chest Single View XRAY; Complete Time: 09:07 pa 09/27 07:59 Order name: Abdomen 1 View (KUB) XRAY; Complete Time: 09:08 pa 09/27 08:26 Order name: CBC Smear Scan; Complete Time: 09:07 [facility] 09/27 07:47 Order name: Cardiac monitoring; Complete Time: 07:52 pa 09/27 07:47 Order name: EKG - Nurse/Tech; Complete Time: 07:52 pa 09/27 07:47 Order name: IV Saline Lock - Large Bore; Complete Time: 08:10 pa 09/27 07:47 Order name: Labs collected and sent; Complete Time: 07:52 pa 09/27 07:47 Order name: O2 Per Protocol; Complete Time: 07:52 pa 09/27 07:47 Order name: O2 Sat Monitoring; Complete Time: 08:02 pa Administered Medications: 08:09 Drug: Zofran 4 mg Route: IVP; Site: right antecubital; tw2 08:36 Follow up: Response: No adverse reaction; Nausea is decreased tw2 08:11 Drug: fentaNYL (PF) 100 mcg Route: IVP; Site: right antecubital; tw2 08:35 Follow up: Response: No adverse reaction; Pain is decreased tw2 08:14 Drug: NS 0.9% 500 ml Route: IV; Rate: bolus; Site: right antecubital; tw2 09:15 Follow up: Response: No adverse reaction; IV Status: Completed infusion; IV Intake: tw2 500ml Disposition: 09/27/18 09:48 Discharged to Home. Impression: Acute on Chronic Back Pain, Metastatic Spine Disease. - Condition is Stable. - Discharge Instructions: Back Pain, Adult, [id number]. - Prescriptions for senna 8.6 mg Oral tablet - take 2 tablet by ORAL route once daily As needed for constipation; 25 tablet. Zofran 4 mg Oral Tablet - take 1 tablet by ORAL route every 12 hours As needed; 20 tablet. - Medication Reconciliation Form, Thank You Letter, Antibiotic Education, Prescription Opioid Use form. - Family Work Release (09/27/18 10:26). bd - Follow up: Private Physician; When: 2 - 3 days; Reason: Recheck today's complaints. - Problem is an acute exacerbation. - Symptoms have improved. - Notes: take your medication as prescribed. return here for worsening pain unresponsive to your medication by mouth at home. also return immediately for any other worrisome concerns including fever, dizziness, chest pain, shortness of breath, nausea or vomiting Signatures: Dispatcher [employer] EDMS Pedrito Alberts RN RN hj Bernie Pagan RN RN tw2 Manuel Min MD MD wa Dirrim, Barbara bd Corrections: (The following items were deleted from the chart) 10: 09:48 09/27/2018 09:48 Discharged to Home. Impression: Acute on Chronic Back Pain; tw2 Metastatic Spine Disease. Condition is Stable. Forms are Medication Reconciliation Form, Thank You Letter, Antibiotic Education, Prescription Opioid Use. Follow up: Private Physician; When: 2 - 3 days; Reason: Recheck today's complaints. Problem is an acute exacerbation. Symptoms have improved. wa
--- NOTE | 2018-09-27 17:16 | EKG ---
Test Date: 2018-09-27 Test Time: 08:23:09 Electro Mechanical Assembler: JEFFY MEASUREMENT RESULTS: Intervals: Rate: 86 CA: 140 QRSD: 112 QT: 396 QTc: 473 [place]: P: 48 CA: 140 QRS: 58 T: 77 INTERPRETIVE STATEMENTS: Normal sinus rhythm Low voltage QRS Nonspecific T wave abnormality Prolonged QT Abnormal ECG Compared to ECG 01/01/2011 08:06:25 Low QRS voltage now present Prolonged QT interval now present T-wave abnormality still present Electronically Signed On 09-27-18 17:14:57 CDT by Juan J Rodriguez
== END 2018-09-27 10:26 | disposition home or self-care (01) ==
LOC: ER 07:30
DX: M54.9 Dorsalgia, unspecified (principal); C18.9 Malignant neoplasm of colon, unspecified; C79.51 Secondary malignant neoplasm of bone; I25.10 Atherosclerotic heart disease of native coronary artery without angina pectoris; I10 Essential (primary) hypertension; E11.9 Type 2 diabetes mellitus without complications; E78.5 Hyperlipidemia, unspecified; Z79.4 Long term (current) use of insulin
CPT/HCPCS: 36415; 71045; 74018; 80048; 80076; 83605; 83690; 84145; 84484; 85025; 85610; 93005; 96361; 96374; 96375; 99285; J2405; J3010

== ENCOUNTER 2019-01-03 03:26 | Emergency (ER) | payer OTHER ==
--- OUTSIDE RECORDS SUMMARY | 2019-01-03 03:28 | XMS REPORT ---
:1965 [facility] Address [address] [place] [address] Care Team Providers Name Role Phone Unavailable Unavailable Unavailable Problems This patient has no known problems. Allergies, Adverse Reactions, Alerts This patient has no known allergies or adverse reactions. Medications This patient has no known medications.
[2019-01-03] MEDS ORDERED: NA CHLORIDE 0.9% 1,000 ML ONE (04:22)
[2019-01-03 04:36] LABS: Protime INR 1.32
[2019-01-03 04:38] LABS: Absolute Lymphocytes (CBC) 0.7 K/uL (0.7-4.9); Basophils % 0.3 % (0-1.3); Lymphocytes % 13.6 % (15.3-44.8); MPV 6.5 fL (7.6-11.3); Monocytes % 8.9 % (3.3-12.3); RBC Red Blood Cell Count 3.26 M/uL (4.33-5.43)
[2019-01-03 04:48] LABS: ALT/SGPT 10 U/L (12-78); AST/SGOT 19 U/L (15-37); Albumin 2.7 g/dL (3.4-5.0); Alkaline Phosphatase 181 U/L (45-117); BUN Blood Urea Nitrogen 13 mg/dL (7-18); Bicarbonate 28 mmol/L (21-32); Bilirubin Direct 0.1 mg/dL (0-0.2); Bilirubin Total 0.3 mg/dL (0.2-1.0); Glucose Level 110 mg/dL (74-106); Magnesium 2.2 mg/dL (1.8-2.4); NT PRO-BNP 310 pg/mL (<125); Potassium 4.4 mmol/L (3.5-5.1); Protein, Total 7.1 g/dL (6.4-8.2); Sodium Level 137 mmol/L (136-145); Troponin (Emerg Dept Use Only) < 0.02 ng/mL (0.0-0.045)
--- NOTE | 2019-01-03 05:09 | EDPHYS ---
Physician Documentation [facility] Name: Donell Can Jr Age: 53 yrs Sex: Male : 1965 Arrival Date: 01/03/2019 Time: 03:27 Bed 5 Private MD: Berhane Hung R ED Physician Augustus Garcia HPI: 01/03 03:56 This 53 yrs old Male presents to ER via Ambulatory with complaints of Nose nellie Bleed. 03:56 The patient presents with a nose bleed, that is apparently anterior, from the right nellie nare, occurred while picking nose, that is continuous small amount. Onset: The symptoms/episode began/occurred just prior to arrival, this morning. Modifying factors: The symptoms are alleviated by pressure, the symptoms are aggravated by blowing nose, sitting up. Associated signs and symptoms: The patient has no apparent associated signs or symptoms. Severity of symptoms: At their worst the symptoms were mild in the emergency department the symptoms are unchanged. The patient has experienced similar episodes in the past, several times. Historical: - Allergies: 03:45 No Known Allergies; jd3 - Home Meds: 03:45 Plavix 75 mg Oral tab 1 tab once daily [Active]; Aspirin Oral [Active]; jd3 - PMHx: 03:45 bowel obstruction; GERD; colon cancer; Hyperlipidemia; ascites; Diabetes - IDDM; jd3 Hypertension; CAD; - PSHx: 03:45 CABG; Gastric Bypass; jd3 - Immunization history:: Adult Immunizations up to date. - Social history:: Smoking status: Patient/guardian denies using tobacco. - Ebola Screening: : Patient negative for fever greater than or equal to 101.5 degrees Fahrenheit, and additional compatible Ebola Virus Disease symptoms. - Family history:: not pertinent. ROS: 03:56 Constitutional: Negative for fever, chills, and weight loss, Eyes: Negative for injury, nellie pain, redness, and discharge, Neck: Negative for injury, pain, and swelling, Cardiovascular: Negative for chest pain, palpitations, and edema, Respiratory: Negative for shortness of breath, cough, wheezing, and pleuritic chest pain, Abdomen/GI: Negative for abdominal pain, nausea, vomiting, diarrhea, and constipation, Back: Negative for injury and pain, : Negative for injury, bleeding, discharge, and swelling, MS/Extremity: Negative for injury and deformity, Neuro: Negative for headache, weakness, numbness, tingling, and seizure, Psych: Negative for depression, anxiety, suicide ideation, homicidal ideation, and hallucinations, Allergy/Immunology: Negative for hives, rash, and allergies, Endocrine: Negative for neck swelling, polydipsia, polyuria, polyphagia, and marked weight changes, Hematologic/Lymphatic: Negative for swollen nodes, abnormal bleeding, and unusual bruising. 03:56 ENT: Positive for nose bleed. 03:56 Skin: Positive for pallor. Exam: 03:56 Constitutional: This is a well developed, well nourished patient who is awake, alert, nellie and in no acute distress. Head/Face: Normocephalic, atraumatic. Eyes: Pupils equal round and reactive to light, extra-ocular motions intact. Lids and lashes normal. Conjunctiva and sclera are non-icteric and not injected. Cornea within normal limits. Periorbital areas with no swelling, redness, or edema. Neck: Trachea midline, no thyromegaly or masses palpated, and no cervical lymphadenopathy. Supple, full range of motion without nuchal rigidity, or vertebral point tenderness. No Meningismus. Chest/axilla: Normal chest wall appearance and motion. Nontender with no deformity. No lesions are appreciated. Cardiovascular: Regular rate and rhythm with a normal S1 and S2. No gallops, murmurs, or rubs. Normal PMI, no JVD. No pulse deficits. Respiratory: Lungs have equal breath sounds bilaterally, clear to auscultation and percussion. No rales, rhonchi or wheezes noted. No increased work of breathing, no retractions or nasal flaring. Abdomen/GI: Soft, non-tender, with normal bowel sounds. No distension or tympany. No guarding or rebound. No evidence of tenderness throughout. Back: No spinal tenderness. No costovertebral tenderness. Full range of motion. Male : Normal genitalia with no discharge or lesions. MS/ Extremity: Pulses equal, no cyanosis. Neurovascular intact. Full, normal range of motion. Neuro: Awake and alert, GCS 15, oriented to person, place, time, and situation. Cranial nerves II-XII grossly intact. Motor strength 5/5 in all extremities. Sensory grossly intact. Cerebellar exam normal. Normal gait. Psych: Awake, alert, with orientation to person, place and time. Behavior, mood, and affect are within normal limits. 03:56 ENT: Nose: Nasal septum: no septal hematoma appreciated, Nasal mucosa: Dried blood. edematous, Mouth: no acute changes, Posterior pharynx: no acute changes. 03:56 Skin: Appearance: Color: pale, Temperature: normal temperature, Moisture: normal moisture, petechiae, not noted, ecchymosis, not noted, diaphoresis is not appreciated. Vital Signs: 03:45 BP 115 / 89; Pulse 89; Resp 15 S; Temp 97.4(O); Pulse Ox 97% on R/A; Weight 58.97 kg jd3 (R); Height 5 ft. 5 in. (165.10 cm) (R); Pain 10/10; 04:45 BP 114 / 85; Pulse 81; Resp 14 S; Pulse Ox 100% on R/A; jd3 05:34 BP 105 / 83; Pulse 81; Resp 13 S; Pulse Ox 100% on R/A; jd3 07:09 BP 94 / 76; Pulse 79; Resp 12; Pulse Ox 98% ; bp 07:23 BP 100 / 78; Pulse 80; Resp 18; Pulse Ox 100% on R/A; hj 03:45 Body Mass Index 21.63 (58.97 kg, 165.10 cm) jd3 03:45 reports pain in back from chronic back pain with history of surgeries. reproted no pain jd3 to nose. Procedures: 05:09 Epistaxis treatment: A small amount of bleeding noted from Treated using direct nellie pressure, anterior packing, Vaseline gauze, Bleeding stopped. MDM: 03:40 Patient medically screened. [facility] 03:56 Data reviewed: vital signs, nurses notes, lab test result(s), EKG, radiologic studies. [facility] 01/03 03:56 Order name: Basic Metabolic Panel [facility] 01/03 03:56 Order name: CBC with Diff [facility] 01/03 03:56 Order name: LFT's 01/03 03:56 Order name: Magnesium [facility] 01/03 03:56 Order name: NT PRO-BNP; Complete Time: 05:02 [facility] 01/03 03:56 Order name: PT-INR; Complete Time: 04:45 [facility] 01/03 03:56 Order name: Troponin (emerg Dept Use Only); Complete Time: 05:02 [facility] 01/03 03:56 Order name: Type And Screen [facility] 01/03 03:57 Order name: Basic Metabolic Panel; Complete Time: 05:02 [facility] 01/03 03:57 Order name: CBC with Automated Diff [facility] 01/03 03:57 Order name: Liver (Hepatic) Function; Complete Time: 05:02 [facility] 01/03 03:57 Order name: Magnesium; Complete Time: 05:02 [facility] 01/03 04:40 Order name: CBC Smear Scan [facility] 01/03 05:06 Order name: Blood Culture Adult (2) [facility] 01/03 03:56 Order name: XRAY Chest (1 view) [facility] 01/03 03:56 Order name: EKG; Complete Time: 03:58 [facility] 01/03 03:56 Order name: Cardiac monitoring; Complete Time: 04:09 [facility] 01/03 03:56 Order name: EKG - Nurse/Tech; Complete Time: 04:09 [facility] 01/03 03:56 Order name: IV Saline Lock; Complete Time: 04:09 [facility] 01/03 03:56 Order name: Labs collected and sent; Complete Time: 04:09 [facility] 01/03 03:56 Order name: O2 Per Protocol; Complete Time: 04:09 [facility] 01/03 03:56 Order name: O2 Sat Monitoring; Complete Time: 04:09 [facility] 01/03 03:56 Order name: Dressing - Wound; Complete Time: 03:57 [facility] 01/03 03:56 Order name: Setup Suture Tray; Complete Time: 03:57 [facility] Administered Medications: 04:09 Drug: NS 0.9% 1000 ml Route: IV; Rate: 125 ml/hr; Site: right [facility]; jd3 07:20 Follow up: IV Status: Order to discontinue infusion; IV Intake: 500ml 05:31 Drug: levofloxacin 500 mg Volume: 100 ml; Route: IVPB; Infused Over: 60 mins; Site: [facility] right forearm; 07:20 Follow up: IV Status: Completed infusion; IV Intake: 100ml Disposition: 01/03/19 05:08 Discharged to Home. Impression: Epistaxis, Anemia, unspecified, Pleural effusion in conditions classified elsewhere, Pneumonia due to other specified bacteria. - Condition is Stable. - Discharge Instructions: Anemia, Nonspecific, Nosebleed, Adult, Community-Acquired Pneumonia, Adult, Community-Acquired Pneumonia, Adult, Aeve-[id number], Nosebleed, Ikow-ux-Etyz. - Prescriptions for Levaquin 500 mg Oral Tablet - take 1 tablet by ORAL route once daily for 7 days; 7 tablet. - Medication Reconciliation Form, Thank You Letter, Antibiotic Education, Prescription Opioid Use form. - Follow up: Berhane Hung MD; When: 1 - 2 days; Reason: Recheck today's complaints, Continuance of care, Re-evaluation by your physician. Follow up: Gisell Sevilla MD; When: 2 - 3 days; Reason: Recheck today's complaints, Re-evaluation by your physician. - Problem is new. - Symptoms have improved. Signatures: Dispatcher [employer] EDMS Augustus Garcia MD MD cha Joaquin, Henry RN Ricky Jama RN RN jd3 Corrections: (The following items were deleted from the chart) 03:57 03:56 Sterile Gloves ordered. nellie garcia 07:24 05:08 01/03/2019 05:08 Discharged to Home. Impression: Epistaxis; Anemia, unspecified; hj Pleural effusion in conditions classified elsewhere; Pneumonia due to other specified bacteria. Condition is Stable. Forms are Medication Reconciliation Form, Thank You Letter, Antibiotic Education, Prescription Opioid Use. Follow up: Berhane Hung; When: 1 - 2 days; Reason: Recheck today's complaints, Continuance of care, Re-evaluation by your physician. Follow up: Gisell Sevilla; When: 2 - 3 days; Reason: Recheck today's complaints, Re-evaluation by your physician. Problem is new. Symptoms have improved. nellie
--- NOTE | 2019-01-03 05:09 | ER ---
Nurse's Notes [facility] Name: Donell Can Jr Age: 53 yrs Sex: Male : 1965 Arrival Date: 01/03/2019 Time: 03:27 Bed 5 Private MD: Berhane Hung R Diagnosis: Epistaxis;Anemia, unspecified;Pleural effusion in conditions classified elsewhere;Pneumonia due to other specified bacteria Presentation: 01/03 03:42 Presenting complaint: Patient states: "at about 2300 last night my started to bleed jd3 after I picked at a clot in my nose. I have been dealing with nasal infections and nose bleeds, but this one won't stop.". Transition of care: patient was not received from another setting of care. Onset of symptoms was January 02, 2019. Risk Assessment: Do you want to hurt yourself or someone else? Patient reports no desire to harm self or others. Initial Sepsis Screen: Does the patient meet any 2 criteria? No. Patient's initial sepsis screen is negative. Does the patient have a suspected source of infection? No. Patient's initial sepsis screen is negative. Care prior to arrival: None. 03:42 Method Of Arrival: Ambulatory jd3 03:42 Acuity: TALA 4 jd3 Historical: - Allergies: 03:45 No Known Allergies; jd3 - Home Meds: 03:45 Plavix 75 mg Oral tab 1 tab once daily [Active]; Aspirin Oral [Active]; jd3 - PMHx: 03:45 bowel obstruction; GERD; colon cancer; Hyperlipidemia; ascites; Diabetes - IDDM; jd3 Hypertension; CAD; - PSHx: 03:45 CABG; Gastric Bypass; jd3 - Immunization history:: Adult Immunizations up to date. - Social history:: Smoking status: Patient/guardian denies using tobacco. - Ebola Screening: : Patient negative for fever greater than or equal to 101.5 degrees Fahrenheit, and additional compatible Ebola Virus Disease symptoms. - Family history:: not pertinent. Screenin:48 Abuse screen: Denies threats or abuse. Nutritional screening: No deficits noted. jd3 Tuberculosis screening: No symptoms or risk factors identified. Fall Risk Ambulatory Aid- Crutches/Cane/Walker (15 pts). Gait- Normal/Bed Rest/Wheelchair (0 pts) Mental Status- Oriented to own ability (0 pts). Total Quiles Fall Scale indicates No Risk (0-24 pts). Assessment: 03:46 General: Appears in no apparent distress. uncomfortable, Behavior is calm, cooperative, jd3 appropriate for age. Pain: Complains of pain in back Quality of pain is described as aching, pinching. Neuro: Level of Consciousness is awake, alert, obeys commands, Oriented to person, place, time, situation, Appropriate for age. Cardiovascular: Denies chest pain, Capillary refill < 3 seconds Patient's skin is warm and dry. Respiratory: Airway is patent Respiratory effort is even, unlabored, Respiratory pattern is regular, symmetrical, Denies cough, shortness of breath. GI: No signs and/or symptoms were reported involving the gastrointestinal system. : No signs and/or symptoms were reported regarding the genitourinary system. EENT: Nares with bleeding noted on left Denies trauma to face.. Derm: Skin is intact, Skin is dry, Skin is pale, Skin temperature is warm. Musculoskeletal: Circulation, motion, and sensation intact. Range of motion: intact in all extremities. 04:46 Reassessment: Patient appears in no apparent distress at this time. No changes from jd3 previously documented assessment. Patient and/or family updated on plan of care and expected duration. Pain level reassessed. Patient is alert, oriented x 3, equal unlabored respirations, skin warm/dry/pink. awaiting results. 05:03 Reassessment: provider at bedside packing nose. jd3 05:32 Reassessment: Patient appears in no apparent distress at this time. Patient and/or jd3 family updated on plan of care and expected duration. Pain level reassessed. Patient is alert, oriented x 3, equal unlabored respirations, skin warm/dry/pink. pt resting in bed with eyes closed, even and unlabored respirations, no distress noted at this this time. awaiting IV medication to infuse before discharge.". 07:00 Reassessment: RECD REPORT FROM DELANEY MIR. 53YO HM P/W EPISTAXIS. ALL CURRENT ORDERS bp COMPLETED, ABX INFUSING PRIOR TO DISPO. Vital Signs: 03:45 BP 115 / 89; Pulse 89; Resp 15 S; Temp 97.4(O); Pulse Ox 97% on R/A; Weight 58.97 kg jd3 (R); Height 5 ft. 5 in. (165.10 cm) (R); Pain 10/10; 04:45 BP 114 / 85; Pulse 81; Resp 14 S; Pulse Ox 100% on R/A; jd3 05:34 BP 105 / 83; Pulse 81; Resp 13 S; Pulse Ox 100% on R/A; jd3 07:09 BP 94 / 76; Pulse 79; Resp 12; Pulse Ox 98% ; bp 07:23 BP 100 / 78; Pulse 80; Resp 18; Pulse Ox 100% on R/A; hj 03:45 Body Mass Index 21.63 (58.97 kg, 165.10 cm) jd3 03:45 reports pain in back from chronic back pain with history of surgeries. reproted no pain jd3 to nose. ED Course: 03:27 Patient arrived in ED. am2 03:27 Berhane Hung MD is Private Physician. am2 03:40 Augustus Garcia MD is Attending Physician. nellie 03:42 Ricky Ruiz RN is Primary Nurse. jd3 03:44 Triage completed. jd3 03:46 Arm band placed on. jd3 03:48 Patient has correct armband on for positive identification. Bed in low position. Call jd3 light in reach. Side rails up X 1. 04:10 Inserted saline lock: 20 gauge in right forearm, using aseptic technique. Blood jd3 collected. placed by Allison MIR. 04:45 XRAY Chest (1 view) In Process Unspecified. EDMS 04:45 Assisted to bathroom. jd3 05:06 Berhane Hung MD is Referral Physician. enllie 05:06 Gisell Sevilla MD is Referral Physician. nellie 07:23 No provider procedures requiring assistance completed. IV discontinued, intact, hj bleeding controlled, No redness/swelling at site. Pressure dressing applied. Administered Medications: 04:09 Drug: NS 0.9% 1000 ml Route: IV; Rate: 125 ml/hr; Site: right forearm; jd3 07:20 Follow up: IV Status: Order to discontinue infusion; IV Intake: 500ml hj 05:31 Drug: levofloxacin 500 mg Volume: 100 ml; Route: IVPB; Infused Over: 60 mins; Site: jd3 right forearm; 07:20 Follow up: IV Status: Completed infusion; IV Intake: 100ml hj Intake: 07:20 IV: 100ml; Total: 100ml. hj 07:20 IV: 500ml; Total: 600ml. jaskaran Outcome: 05:08 Discharge ordered by . nellie 07:23 Discharged to home ambulatory. hj 07:23 Condition: stable 07:23 Discharge instructions given to patient, Instructed on discharge instructions, follow up and referral plans. medication usage, Demonstrated understanding of instructions, follow-up care, medications, Prescriptions given X 1. 07:24 Patient left the ED. jaskaran Signatures: Dispatcher [employer] EDCT Augustus Garcia MD MD cha Joaquin, Henry, RN RN Karla Del Valle Jonathon RN RN jMarcelo Kamara RN RN bp Corrections: (The following items were deleted from the chart) 03:54 03:46 Derm: Skin is intact, Skin is dry, Skin is normal, Skin temperature is warm jsrikanth jsrikanth
[2019-01-03 05:10] LABS: Anisocytosis 1+; Blood Morphology Comment NOTED (NOT SEEN); Macrocytosis SLIGHT; Platelet Estimate ADEQ; Urine White Blood Cell Casts OK
[2019-01-03] MEDS ORDERED: Levofloxacin500mg IV 500 MG/100 ML BAG IV ONE (05:44)
--- NOTE | 2019-01-03 08:22 | RAD REPORT ---
EXAM DESCRIPTION: RAD - Chest Single View - 01/03/2019 4:45 am CLINICAL HISTORY: COUGH Chest pain. COMPARISON: Chest Single View dated 09/27/2018; Abdomen 1 View (KUB) dated 09/27/2018; CHEST SINGLE EW dated 01/01/2011 FINDINGS: Portable technique limits examination quality. The lungs are underinflated with a moderate left pleural effusion. Atelectasis is noted in both lung bases. Hazy increased left lung markings are seen which probably indicate pneumonia. The heart is upp er limit normal in size with sternotomy wires present. Right-sided port catheter its tip in the SVC.
--- NOTE | 2019-01-03 10:56 | EKG ---
Test Date: 2019-01-03 Test Time: 04:05:23 Rotary Cutter Operator: LAWRENCE MEASUREMENT RESULTS: Intervals: Rate: 82 GA: 140 QRSD: 104 QT: 388 QTc: 453 [place]: P: 22 GA: 140 QRS: 24 T: 34 INTERPRETIVE STATEMENTS: Normal sinus rhythm Low voltage QRS Nonspecific T wave abnormality Abnormal ECG Compared to ECG 09/27/2018 08:23:09 Prolonged QT interval no longer present T-wave abnormality still present Electronically Signed On 01-03-19 10:54:49 CDT by John Kat
== END 2019-01-03 07:24 | disposition home or self-care (01) ==
LOC: ER 03:26
PROC: 2Y41X5Z Packing of Nasal Region using Packing Material (ICD-10-PCS; principal; 2019-01-03)
DX: R04.0 Epistaxis (principal); D64.9 Anemia, unspecified; J15.8 Pneumonia due to other specified bacteria; J91.8 Pleural effusion in other conditions classified elsewhere; E78.5 Hyperlipidemia, unspecified; I10 Essential (primary) hypertension; I25.10 Atherosclerotic heart disease of native coronary artery without angina pectoris; Z79.01 Long term (current) use of anticoagulants; Z79.82 Long term (current) use of aspirin; Z95.1 Presence of aortocoronary bypass graft
CPT/HCPCS: 30901; 36415; 71045; 80048; 80076; 83735; 83880; 84484; 85025; 85610; 86850; 86900; 86901; 87040; 93005; 96361; 96365; 96366; 99284; J7030